=== PATIENT | male | born 2005 | race Two or more races ===

== ENCOUNTER 2025-03-21 15:55 | Emergency (ER) | payer MEDICAID, SELFPAY ==
[2025-03-21 15:56] VITALS: BMI 24.4
[2025-03-21 16:49] VITALS: BP 138/73; PULSE 64; RESP 18; TEMP 36.7; O2SAT 100
--- NOTE | 2025-03-21 16:54 | EDNOTE_ITS ---
ED Eye Problem RME/HPI General Chief complaint: Eye Problems Stated complaint: FOREIGN OBJECT IN RT EYE Time Seen by Provider: 03/21/25 16:50 Source: patient Arrival date/time: 03/21/25 15:55 18-year-old male with no known medical history presents to the emergency room with a chief complaint of a foreign body in his right eye x 1 day Mode of arrival: ambulatory Limitations: no limitations Related Data Previous Rx's ?Medication ?Instructions ?Recorded Sulfamethoxazole/Trimethoprim DS * 1 tab PO BID #20 ta bs 06/22/17 (BACTRIM DS *) ciprofloxacin HCl 0.3 % eye drops See Rx Instructions ophthalmic 03/21/25 (eye) .COMPLEX #5 mL Allergies Allergy/AdvReac Type Severity Reaction Status Date / Time No Known Allergies Allergy Verified 08/10/21 09:49 Review of Systems Review of Systems Systems Reviewed: All systems reviewed, normal except as documented Constitutional Constitutional: Reports system reviewed and no additional complaints, except as documented, Denies fatigue, Denies fever(s), Denies headache(s) and Denies weakness Eyes Eyes: Reports system reviewed and no additional complaints, except as documented, Denies as per HPI, Denies blind spots, Denies blurry vision, Denies change in vision, Denies decreased night vision, Denies diplopia, Denies eye discharge, Denies dry eyes, Denies exophthalmos, Denies floaters, Reports irritation, Denies itchy eyes, Denies loss of peripheral vision, Denies loss of vision, Denies other visual disturbances, Denies eye pain, Denies photophobia, Denies requires corrective lenses, Denies seeing flashes, Denies spots in vision and Denies tunnel vision ENT Ears, Nose, Mouth, and Throat: Reports system reviewed and no additional complaints, except as documented, Denies otalgia, Denies headache(s), Denies nasal congestion, Denies throat swelling and Denies vertigo Cardiovascular Cardiovascular: Reports system reviewed and no additional complaints, except as documented, Denies chest pain, Denies dyspnea and Denies dyspnea on exertion Respiratory Respiratory: Reports system reviewed and no additional complaints, except as documented, Denies chest congestion, Denies cough, Denies dyspnea, Denies dyspnea on exertion and Denies wheezing Gastrointestinal Gastrointestinal: Reports system reviewed and no additional complaints, except as documented, Denies abdominal pain, Denies cramping, Denies nausea and Denies vomiting Genitourinary Genitourinary: Reports system reviewed and no additional complaints, except as documented, Denies dysuria and Denies hematuria Musculoskeletal Musculoskeletal: Reports system reviewed and no additional complaints, except as documented and Denies back pain Integumentary/Breasts Skin/Breast: Reports system reviewed and no additional complaints, except as documented and Denies wounds Neurologic Neurologic: Reports system reviewed and no additional complaints, except as documented, Denies confusion, Denies headache(s), Denies lack of coordination, Denies loss of vision, Denies vertigo and Denies weakness Psychiatric Psychiatric: Reports system reviewed and no additional complaints, except as documented, Denies anxiety, Denies confusion, Denies depression, Denies paranoia, Denies suicidal ideation and Denies tactile hallucinations Endocrine Endocrine: Reports system reviewed and no additional complaints, except as documented and Denies fatigue Hematologic/Lymphatic Hematologic/Lymphatic: Reports system reviewed and no additional complaints, except as documented and Denies lymphadenopathy Allergic/Immunologic Allergic/Immunologic: Reports system reviewed and no additional complaints, except as documented, Denies itchy eyes, Denies throat swelling, Denies urticaria and Denies wheezing Past Medical History Social History SMOKING STATUS: Never smoker ED Exam General Limitations: Present no limitations General appearance: Present alert and in no apparent distress Head Head exam: Present atraumatic Eye Eye exam: Present normal appearance, PERRL and EOMI Expanded Eye Exam Pupils: Bilateral: regular, round and reactive Sclera/Conjunctival: right: foreign body (There appears to be some piece of metal in his eye) ENT ENT exam: Present normal exam, normal oropharynx and mucous membranes moist Neck Neck exam: Present normal inspection, full ROM and trachea midline Chest Chest inspection: Present normal inspection and symmetric chest wall rise Respiratory Respiratory exam: Present normal lung sounds bilaterally Cardiovascular Cardiovascular exam: Present regular rate, normal rhythm and normal heart sounds Abdominal Exam Abdominal exam: Present soft and normal bowel sounds Extremities Exam Extremities exam: Present normal inspection and full ROM Back Exam Back exam: Present normal inspection and full ROM Neurological Exam Neurological exam: Present alert, oriented X3 and CN II-XII intact Psychiatric Psychiatric exam: Present normal affect and normal mood Skin Skin exam: Present warm, dry, intact and normal color Course Quality Measures none Orders Category Date Time Status ED Eye Irrigation ONCE Care 03/21/25 16:54 Completed Mistry Lamp to Bedside X1 Care 03/21/25 16:54 Completed Fluorescein Sodium [[id number]] Med 03/21/25 16:54 Discontinued 1 mg LEFT EYE X1 ONE TETRACAINE Op Chelsy 0.5% [Pontocaine Op Chelsy 0.5%] Med 03/21/25 16:54 Discontinued 1 drop LEFT EYE X1 ONE Vital Signs Vital signs: Vital Signs Temperature 98.1 F 03/21/25 16:49 Pulse Rate 64 03/21/25 16:49 Respiratory Rate 18 03/21/25 16:49 Blood Pressure 138/73 H 03/21/25 16:49 Pulse Oximetry (%) 100 03/21/25 16:49 Oxygen Delivery Method Room Air 03/21/25 16:49 Procedures -ED Mistry Lamp Exam Right eye: Mistry Lamp Findings: Corneal abrasion Eye MDM Narrative MDM Narrative:: 18-year-old male with no known medical history presents to the emergency room with a chief complaint of a foreign body in his right eye x 1 day Patient is hemodynamically stable and in no apparent distress Physical examination shows a foreign body in the right eye to the left of the iris. Cotton swabs and a small needle were used to remove the foreign body which appears to be a small piece of metal. Patient states at his work there is a nubbin and he believes a small piece of metal flew in his eye. A Mistry lamp examination was completed and the foreign body was removed but there appears to be a small abrasion where the piece of metal is at. Antibiotics were sent to the patient's pharmacy. The patient was educated to follow-up with his primary care provider for referral to an powertrain control systems engineer for further management Patient was discharged and educated to follow-up with primary care provider in the next 24 to 48 hours and return to the emergency room for any evidence of worsening signs or symptoms Patient data External records reviewed:: [facility] previous records Clinical information provided by:: patient Social determinants that could affect healthcare access:: none Patient has the following chronic illnesses:: No chronic illness How is presenting disease/condition affected by chronic disease/condition?: no chronic disease Evaluation data The following diagnostics were reviewed and interpreted by me:: lab results and radiology exam(s) Lab and/or radiology exams considered but not ordered:: Labs and radiology exams considered in order Interpretation Summary: N/A Medications / Prescriptions Medications or Prescriptions considered but not ordered:: Medication given Medication administrations:: Medication Administration History Discontinued Medications Fluorescein Sodium (Fluorescein Sod 1 Mg Strp) 1 mg LEFT EYE X1 ONE Stop: 03/21/25 16:55 Last Admin: 03/21/25 17:28 Dose: Not Given Documented By: [facility] Non-Admin Reason: Medication Not Available Tetracaine HCl (Tetracaine Pf Op Chelsy 0.5% 4 Ml Drpette) 1 drop LEFT EYE X1 ONE Stop: 03/21/25 16:55 Last Admin: 03/21/25 17:21 Dose: 1 drop Documented By: [facility] Comments: USED BY PROVIDER Medication given Consultations Consultation(s) initiated? (list below): No Diagnosis Eye Problem Differential Diagnosis: corneal abrasion, conjunctivitis, acute iritis and corneal ulcer Most likely diagnosis given after review of the tests above:: Corneal abrasion Admission Indicated Admission indicated?: not indicated Admission Request Was there a request for admission?: No Disposition Plan Disposition Plan: Discharge Discharge Attestation Discharge Attestation: The patient and all family members were given an opportunity to ask questions and understood the discharge instructions. Discharge instructions specifically effects, indications for sooner follow up or return to the emergency department, and the expected course of current diagnosis. Patient condition: Stable Discharge Plan Plan Patient Disposition: HOME (Self Care) Discharge Disposition comment: Stable Prescriptions/Referrals Prescriptions/Med Rec: New ciprofloxacin HCl 0.3 % drops See Rx Instructions .ROUTE .COMPLEX Qty: 5 0RF Rx Instructions: put 1-2 drps in affected eye(s) every 2hr up to 8 times/day x2days; then 4 times/day x5days No Action Sulfamethoxazole/Trimethoprim DS * (BACTRIM DS *) 1 TAB tablet 1 tab PO BID Qty: 20 0RF Problem List Clinical Impression: Corneal abrasion, Foreign body in eye Patient/Caregiver Discharge Instructions Education Materials: Corneal Injury, ED Corneal Abrasion Additional Instructions: Please follow-up with your primary care provider in the next 24 to 48 hours Antibiotic is sent to your pharmacy please pick them up and take them as indicated If your sinus symptoms continue you will need to follow-up with your primary care provider for referral to an powertrain control systems engineer. For any evidence of worsening signs or symptoms return to the emergency room immediately Print Language: Bangladeshi Stand Alone Forms: Debora Award Info., Patient Portal Info Letter PA/MANUFACTURING DEVELOPMENT ENGINEER Supervising Physician PA/MANUFACTURING DEVELOPMENT ENGINEER Supervising Physician: Dr. York
[2025-03-21] MEDS: TETRACAINE PF OP SOL 0.5% 4 ML DRPETTE 1 DROP LEFT EYE (17:21)
== END 2025-03-21 17:55 | disposition home or self-care (01) ==
LOC: SERX 18:01
PROVIDERS: Emergency Provider Family Medicine; PCP Nurse Practitioner Family
DX: T15.01XA Foreign body in cornea, right eye, initial encounter (principal); X58.XXXA Exposure to other specified factors, initial encounter
CPT/HCPCS: 93005; 99283